=== PATIENT | female | born 1960 | race Caucasian/White ===

== ENCOUNTER 2017-07-21 06:50 | Emergency (ER) | payer OTHER ==
[~2017-07-21] VITALS: Ht 154.9 cm; Wt 53.5 kg
[~2017-07-21 06:50] MED LIST: CALCIUM 600 +1 EAC1 PO; FIBER0.52 GM PO; FISH OIL 1,001000 M1 PO; HYDROCODON-ACE1 EACH PO; LOESTRIN 24 FE1 EACH PO; MULTIVITAMINS PO; SPIRONOLACTONE100 M1 PO; VALIUM5 MG PO
[2017-07-21 08:09] VITALS: BP 105/58
== END 2017-07-21 07:55 | disposition home or self-care (01) ==
LOC: ER 06:50
DX: S93.401A Sprain of unspecified ligament of right ankle, initial encounter (principal); F41.9 Anxiety disorder, unspecified; Z90.710 Acquired absence of both cervix and uterus; W11.XXXA Fall on and from ladder, initial encounter; Y93.89 Activity, other specified; Y92.89 Other specified places as the place of occurrence of the external cause; Y99.8 Other external cause status